=== PATIENT | female | born 1990 | race Caucasian/White ===

== ENCOUNTER 2024-07-06 08:37 | Emergency (ER) | payer OTHER, MEDICAID, SELFPAY ==
--- NOTE | 2024-07-06 08:45 | ED_ITS ---
HPI - General Adult General Stated complaint: rabies vaccine Time Seen by Provider: 07/06/24 08:45 History of Present Illness HPI narrative: 33-year-old woman moved to the area in the last few days. Had a bat exposure and had initial vaccine and IVIG, she had initial follow up immunization and is supposed to have another immunization on the and on July 13. She comes in for immunization. She does bring documentation from previous visits that is quite clear. No other concerns at this time Exam Narrative Exam Narrative: General: Alert appropriate in no acute distress Respiratory: Able to speak in full sentences, no obvious respiratory distress Skin: No obvious rashes, warm and dry Neurologic: Grossly intact no obvious asymmetries or abnormalities Psych: appropriate insight and affect, cooperative Medical Decision Making MDM Narrative Medical decision making narrative: 33-year-old woman needing her 2nd and 3rd rabies vaccine in the series. Started an outside hospital with excellent records and documentation brought into support her request. She is given vaccine 2. Today we will return on July 13 for 3. She is safe for discharge Discharge Plan Departure Patient Disposition: Home Clinical Impression: Exposure to rabies Activity Restrictions/Additional Instructions: Thank you for bringing all of the information from the previous visits specific ally the prescription with documentation for when the vaccines are required. You will need to return on July 13 for the final vaccine If you find that you are getting worse or develop any new symptoms, please feel free to return to the emergency department for further evaluation. Stand Alone Forms: Patient Portal/API/Survey
[2024-07-06 08:48] VITALS: BP 153/94; PULSE 75; RESP 18; TEMP 36.6; O2SAT 100; BMI 25.7
[2024-07-06] MEDS: RABIES VACCINE (RABAVERT) 2.5 UNITS SYRINGE IM (09:14)
== END 2024-07-06 09:16 | disposition home or self-care (01) ==
PROVIDERS: Emergency Provider Emergency Medicine
DX: Z20.3 Contact with and (suspected) exposure to rabies (principal); Z23 Encounter for immunization
CPT/HCPCS: 90471; 90675; 99283

== ENCOUNTER 2024-07-13 10:49 | Emergency (ER) | payer OTHER, MEDICAID, SELFPAY ==
[2024-07-13 10:57] VITALS: BP 141/83; PULSE 84; RESP 14; TEMP 36.2; O2SAT 99; BMI 26.4
--- NOTE | 2024-07-13 12:20 | ED.RECABL ---
HPI - Recheck/Abnormal Lab/Rx <Idania Chirinos PA-C - Last Filed: 07/13/24 13:21> General Chief Complaint: Recheck/Abnormal Lab/Rx Stated Complaint: Needs last Rabies shot Time Seen by Provider: 07/13/24 12:20 Source: patient Mode of arrival: Ambulatory History of Present Illness HPI narrative: Ms. Campbell is a pleasant 33-year-old female with no reported past medical history who presents to the emergency department for day 14 of her rabies post exposure prophylaxis immunization. She has already received day 0, 3, 7. She had a bat exposure to her right index finger, potentially and received RIG at an outside hospital on day 0. She denies any symptoms or concerns, no wound on right index finger Related Data Allergies Allergy/AdvReac Type Severity Reaction Status Date / Time No Known Drug Allergies Allergy Verified 07/13/24 10:57 Review of Systems <Idania Chirinos PA-C - Last Filed: 07/13/24 13:21> Review of Systems ROS Unobtainable: All systems reviewed & are unremarkable except as noted in HPI and below Patient History <Idania Chirinos PA-C - Last Filed: 07/13/24 13:21> Social History Smoking Status: Current every day smoker Smoking Status: Current every day smoker tobacco type: vaping alcohol intake frequency: holidays/special occasions only Substance Use Type: does not use Exam <Idania Chirinos PA-C - Last Filed: 07/13/24 13:21> Narrative Exam Narrative: GENERAL: 33 year old patient appears stated age. Well-developed patient, in no acute distress. HEAD: Atraumatic. Normocephalic. EYES: Extraocular motions intact. No scleral icterus. No injection or drainage. ENT: Nose without bleeding, purulent drainage. NECK: Trachea midline. CARDIOVASCULAR: Regular rate and rhythm. RESPIRATORY: Speaking in clear, full sentences. Nonlabored breathing. EXTREMITIES: No edema or joint tenderness. NEURO: AOx3. SKIN: No rash or erythema of visible areas. Right index finger with no wound. Initial Vital Signs Initial Vital Signs: Vital Signs Temperature 97.2 F L 07/13/24 10:57 Pulse Rate 84 07/13/24 10:57 Respiratory Rate 14 07/13/24 10:57 Blood Pressure 141/83 H 07/13/24 10:57 Pulse Oximetry 99 07/13/24 10:57 Oxygen Delivery Method Room Air 07/13/24 10:57 <DO Kirt Morales Last Filed: 07/16/24 07:26> Initial Vital Signs Initial Vital Signs: Vital Signs Temperature 97.2 F L 07/13/24 10:57 Pulse Rate 84 07/13/24 10:57 Respiratory Rate 14 07/13/24 10:57 Blood Pressure 141/83 H 07/13/24 10:57 Pulse Oximetry 99 07/13/24 10:57 Oxygen Delivery Method Room Air 07/13/24 10:57 Course <Idania Chirinos PA-C - Last Filed: 07/13/24 13:21> Orders Ordered: Discontinued Medications Rabies Vaccine (Rabies Vaccine (Rabavert) 2.5 Units Syringe) 2.5 units IM .ONCE ONE Stop: 07/13/24 12:34 Last Admin: 07/13/24 12:42 Dose: 2.5 units Documented By: MICHAEL Vital Signs Vital signs: Vital Signs - 8 hr 07/13/24 10:57 Temperature 97.2 F L Pulse Rate 84 Respiratory Rate 14 Blood Pressure 141/83 H Pulse Oximetry 99 Oxygen Delivery Method Room Air <DO Kirt Morales Last Filed: 07/16/24 07:26> Orders Ordered: Discontinued Medications Rabies Vaccine (Rabies Vaccine (Rabavert) 2.5 Units Syringe) 2.5 units IM .ONCE ONE Stop: 07/13/24 12:34 Last Admin: 07/13/24 12:42 Dose: 2.5 units Documented By: MICHAEL Vital Signs Vital signs: Vital Signs - 8 hr 07/13/24 10:57 Temperature 97.2 F L Pulse Rate 84 Respiratory Rate 14 Blood Pressure 141/83 H Pulse Oximetry 99 Oxygen Delivery Method Room Air MDM - Recheck/Abnormal Lab/Rx <Idania Chirinos PA-C - Last Filed: 07/13/24 13:21> MDM Narrative Medical decision making narrative: 33-year-old female presents to the emergency department for day 14 of her rabies post exposure prophylaxis vaccination. She has already received immunoglobulin and day 0, 3, 7 vaccines. Day 7 was received on 07/06/24 at our hospital, others were at outside facility. Patient denies any concerns and has no wound. She received her last rabies vaccine dose. All questions answered. Recommended follow up with primary care doctor and return to ER for any concerns. Discharge Plan Departure Patient Disposition: Home Clinical Impression: Exposure to rabies, Need for rabies vaccination Activity Restrictions/Additional Instructions: You have completed your day 0, 3, 7, and 14 rabies vaccination. Return to the ER with any concerns. Stand Alone Forms: Patient Portal/API/Survey ED Sign-out <Dominga Smith DO - Last Filed: 07/16/24 07:26> Cosign ED Attending Cosignature Attestation: I was available for consultation.
[2024-07-13] MEDS: RABIES VACCINE (RABAVERT) 2.5 UNITS SYRINGE IM (12:42)
[2024-07-13 13:19] VITALS: BP 147/85; PULSE 67; RESP 16; O2SAT 96
== END 2024-07-13 13:17 | disposition home or self-care (01) ==
PROVIDERS: Emergency Provider Physician Assistant
DX: Z20.3 Contact with and (suspected) exposure to rabies (principal); Z23 Encounter for immunization
CPT/HCPCS: 90471; 90675; 99283